=== PATIENT | female | born 1970 | race Caucasian/White ===

== ENCOUNTER 2017-09-15 17:22 | Inpatient (IN) | payer OTHER ==
[~2017-09-15] VITALS: Ht 154.9 cm; Wt 51.2 kg
[2017-09-15 18:18] LABS: BASOPHIL % 0.1 % (0-2); PLATELET COUNT 195 x10^3mcL (130-400); RED CELL DISTRIBUTION WIDTH 12.9 % (11.5-14.5)
[2017-09-15 18:23] LABS: UA SPECIFIC GRAVITY >=1.030 (1.005-1.035); microscopic required? YES; urine erythrocyte 1+ (NEGATIVE)
[2017-09-15 18:32] LABS: AMPHETAMINE QUAL UR NONE DETECTED (NEG <=1000)
[2017-09-15 18:43] LABS: CALCIUM 8.8 mg/dL (8.5-10.1); CARBON DIOXIDE 24.9 mmol/L (21-32); CHLORIDE SERUM 102 mmol/L (98-107); CREATININE SERUM 0.6 mg/dL (0.6-1.0); GFR1 > 60 mL/min; GLUCOSE SERUM 105 mg/dL (74-106); POTASSIUM SERUM 3.9 mmol/L (3.5-5.1); SODIUM SERUM 137 mmol/L (136-145)
[2017-09-15 18:47] LABS: ALBUMIN 3.8 g/dL (3.4-5.0); ALKALINE PHOSPHATASE 55 U/L (46-116); ALT/SGPT 69 U/L (14-59); AST/SGOT 42 U/L (15-37); BILIRUBIN TOTAL 0.44 mg/dL (0.20-1.00); CHOLESTEROL 152 mg/dL (<200); HDL CHOLESTEROL 41 mg/dL (40-60); LIPASE 232 IU/L (73-393); T4(THYROXINE) 8.7 ug/dL (4.7-13.3); TOTAL PROTEIN, SERUM 8.2 g/dL (6.4-8.2)
[2017-09-15 18:48] LABS: AMYLASE 153 U/L (25-115)
[2017-09-15 20:51] LABS: CHOLESTEROL/HDL RATIO 3.8; MAGNESIUM 2.2 mg/dL (1.8-2.4); PHOSPHOROUS 3.2 mg/dL (2.5-4.9)
[2017-09-15 20:58] LABS: T3 TOTAL 0.88 ng/mL
[2017-09-15 21:01] LABS: FREE T4 1.2 ng/dL (0.76-1.46); FREE THYROXINE INDEX 3.1 ug/dL (1.4-4.5)
[2017-09-15 21:39] VITALS: BP 104/49
[2017-09-15 21:49] VITALS: BP 104/49
[2017-09-15 23:52] VITALS: BP 105/67
[2017-09-16 05:00] VITALS: BP 97/55
[2017-09-16 06:16] LABS: BASOPHIL % 0.3 % (0-2); PLATELET COUNT 159 x10^3mcL (130-400); RED CELL DISTRIBUTION WIDTH 12.8 % (11.5-14.5)
[2017-09-16 06:42] LABS: CALCIUM 7.5 mg/dL (8.5-10.1); CARBON DIOXIDE 22.1 mmol/L (21-32); CHLORIDE SERUM 107 mmol/L (98-107); CREATININE SERUM 0.4 mg/dL (0.6-1.0); GFR1 > 60 mL/min; GLUCOSE SERUM 89 mg/dL (74-106); PHOSPHOROUS 2.9 mg/dL (2.5-4.9); POTASSIUM SERUM 3.9 mmol/L (3.5-5.1); SODIUM SERUM 138 mmol/L (136-145)
[2017-09-16 10:13] VITALS: BP 106/67
[2017-09-16 13:29] VITALS: BP 111/70
[2017-09-16 15:03] LABS: IRON 22 ug/dL (50-170); TOTAL IRON BINDING CAPACITY 232 ug/dL (250-450)
[2017-09-16 15:03] LABS: RED BLOOD CELLS 2.83 M/mm3 (4.10-5.10)
[2017-09-16 17:43] VITALS: BP 93/55
[2017-09-16 20:58] VITALS: BP 100/62
[2017-09-17 05:43] VITALS: BP 95/62
[2017-09-17 06:20] LABS: BASOPHIL % 0.6 % (0-2); PLATELET COUNT 170 x10^3mcL (130-400)
[2017-09-17 06:53] LABS: CALCIUM 7.6 mg/dL (8.5-10.1); CARBON DIOXIDE 23.3 mmol/L (21-32); CHLORIDE SERUM 105 mmol/L (98-107); CREATININE SERUM 0.5 mg/dL (0.6-1.0); GFR1 > 60 mL/min; GLUCOSE SERUM 112 mg/dL (74-106); POTASSIUM SERUM 3.2 mmol/L (3.5-5.1); SODIUM SERUM 137 mmol/L (136-145)
[2017-09-17 08:27] VITALS: BP 87/59
[2017-09-17 09:15] VITALS: BP 92/56
[2017-09-17] MEDS ORDERED: OSCD PO (10:17)
[2017-09-17] MEDS ORDERED: VITAMIN C100 M2 PO (10:18)
[2017-09-17] MEDS ORDERED: FERG PO (10:18)
[2017-09-17 11:16] VITALS: BP 92/56
== END 2017-09-17 13:04 | disposition home or self-care (01) | DRG 73 ==
LOC: ED 17:22 → DU 20:10 → MU 09-17 07:23
PROVIDERS: Emergency Medicine; ADMIT Family Medicine
DX: G90.9 Disorder of the autonomic nervous system, unspecified (principal); N17.0 Acute kidney failure with tubular necrosis; R73.03 Prediabetes; D64.9 Anemia, unspecified; R31.9 Hematuria, unspecified; E83.51 Hypocalcemia; E86.0 Dehydration
CPT/HCPCS: 76770; 83880; 84439; 87804; 90658; J2405; J2543; J7030; J7040; J8597; Q0092